=== PATIENT | male | born 2005 | race Caucasian/White ===

== ENCOUNTER 2025-03-29 22:59 | Emergency (ER) | payer BC, SELFPAY ==
[2025-03-29 23:09] VITALS: BP 146/61; PULSE 60; RESP 18; TEMP 36.8; O2SAT 99
--- NOTE | 2025-03-29 23:28 | ED.GENADUL_ITS ---
Discharge Plan Disposition Patient Disposition: Home Condition: Good Discharge Details Clinical Impression: Concussion Primary Care Provider: Unknown,Unknown ED Provider: Lilliam Kaiser Home Meds and New Rx's Prescriptions: No Action No Known Home Meds Discharge Instructions Instructions: Concussion, Adult ED Additional Instructions: Call your primary care doctor in the morning to schedule an appointment to be seen within 72 hours to followup on your visit today. Return to the emergency department for new or worsening symptoms including vomiting, numbness, weakness, vertigo, or if you have any other concerns. HPI General Mode of arrival: ambulatory . Date/Time Provider Initiated Documentation: 03/29/25 23:00 . Limitations to Documentation: no limitations . Information obtained by: patient . HPI Narrative: 19yo previously healthy male presenting with headache and memory problems. Symptoms started two days ago after being struck in the head with a soccer ball. No LOC, not on AC. The afternoon after the event he was unable to remember clearly what he had been doing for the past several hours. Still feels like his 'thinking is fussy'. 5/10 dull diffuse headache; had not taken anything for pain. No neck pain, numbness, weakness, vertigo, double vision, nausea, or vomiting. Feels like his eyes are watering more than usual; no other vision changes. Otherwise in his usual state of health. Related Data Home Medications ?Medication ?Instructions ?Recorded ?Confirmed Unknown [No Known Home Meds] 03/29/25 0 03/29/25 Allergies Allergy/AdvReac Type Severity Reaction Status Date / Time No Known Allergies Allergy Unverified 03/29/25 23:15 General Stated Complaint: HeadInjury JAMES: 3 Review of Systems Narrative: see HPI Exam Narrative Exam Narrative: General: Alert, well appearing, well nourished, in no acute distress. Head: Normocephalic, atraumatic Neck: Trachea midline, ?Neck supple. No midline cervical tenderness. Full pain free ROM ENT: ?MMM.? No oropharygeal lesions or exudate. Cardiac: ?RRR, no murmurs appreciated Resp: No respiratory distress. CTAB. Abd: ?Soft, non-distended, nontender : ?No suprapubic tenderness. No CVA tenderness. Extremities: ?No deformities.? No peripheral edema. Neuro: ? GCS 15.? PERRL.? EOMI.? Fluent speech, no dysarthria. Motor- 5/5 strength symmetric bilateral upper and lower extremities including shoulder abductors/adductors, elbow flexors/extensors, wrist flexors/extensors, finger abductors/adductors, hipflexors/extensors, knee flexors/extensors, ankle dorsiflexors and planter flexors. Sensation- ?Intact to light touch and symmetric multiple dermatomes including upper and lower extremities Coordination- No dysmetria on finger to nose Reflexes- 2/4 achilles & patellar, no clonus Gait/station: ?Normal stance.? No truncal ataxia. Steady gait with equal normal steps CRANIAL NERVES: II: Pupils equal and reactive, III, IV, : EOM intact, no gaze preference or deviation, no nystagmus. V: normal sensation in V1, V2, and V3 segments bilaterally VII: no asymmetry, no nasolabial fold flattening VIII: normal hearing to speech IX, X: normal palatal elevation, no uvular deviation XI: 5/5 head turn and 5/5 shoulder shrug bilaterally XII: midline tongue protrusion Eye: ?PERRL ?EOM full and pain free.? Visual brooke intact to confrontation bilaterally R: ? ? VA- 20/40 ? ?Lids/lashes- nml ?Conjuctiva-white ?Cornea: Clear ? L: ? ? VA- 20/40 ? ?Lids/lashes- nml ?Conjuctiva-white ?Cornea: Clear ? Course Vital Signs Vital signs: Vital Signs Temperature 36.8 C 03/29/25 23:09 Pulse 60 03/29/25 23:09 Respiratory Rate 18 03/29/25 23:09 Blood Pressure 146/61 H 03/29/25 23:09 Pulse Oximetry 99 03/29/25 23:09 Temperature 36.8 C 03/29/25 23:09 Temperature Source Oral 03/29/25 23:09 Pulse 60 03/29/25 23:09 Respiratory Rate 18 03/29/25 23:09 Respiratory Effort Normal 03/29/25 23:12 Blood Pressure 146/61 H 03/29/25 23:09 Pulse Oximetry 99 03/29/25 23:09 Oxygen Delivery Method Room Air 03/29/25 23:09 Oxygen Flow Rate 0 03/29/25 23:09 Pain Level 2 08/21/25 23:09 Medical Decision Making 19yo previously healthy male presenting with headache and memory problems. Symptoms started two days ago after being struck in the head with a soccer ball. No LOC, not on AC. 5/10 dull diffuse headache; had not taken anything for pain. Vital signs reassuring on arrival, normal neurologic exam and eye exam. Not suggestive of retinal detachment or traumatic eye injury. Suspect concussion, low suspicion for ICH. Discussed with patient risks/benefits of CT including risk of radiation; he would prefer to proceed with CT imaging. CT head independently reviewed; no ICH or mass on my view, radiology read with no acute findings. Advised symptomatic treatment at home, PCP followup. Discharged home. Discharge instructions and return precuations were reviewed with patient who verabalized understanding. All questions were answered and he is in full agremeent with the plan. IMPRESSION: No evidence for acute intracranial abnormality PFSH All Active Problems (Updated 03/30/25 @ 01:11 by Lilliam Kaiser MD) Concussion (Acute) Social History Smoking/Tobacco Use Status: Never Smoking risk assessment performed?: Yes Alcohol Intake: never Substance use type: does not use
--- NOTE | 2025-03-29 23:45 | DI.CT_ITS ---
Exam(s) CT HEAD WO EXAM: CT HEAD WO CLINICAL HISTORY: head injury, memory loss. TECHNIQUE: Imaging Protocol: Axial computed tomography images with coronal and sagittal reformatted images were created and reviewed COMPARISON: No exams were available for comparison FINDINGS: There are no skull fractures. There is no fluid in the visualized paranasal sinuses. There is no evidence of intracranial hemorrhage, mass effect, or shift of midline structures. There are no extra-axial fluid collections. The ventricles are not enlarged or shifted and there is no blood within the ventricular system nor within the basal cisterns. IMPRESSION: No acute intracranial findings on this noninfused CT scan of the brain. RADIATION DOSE DELIVERED: 840.08mGy.cm Total DLP DATA REPOSITORY: All CT scans at this facility are submitted to the National Radiology Data Registry (NRDR) Dose Index Registry (DIR) with the [employer] ([employer]). RADIATION OPTIMIZATION: All CT scans at this facility use at least one of these dose optimization techniques: automated exposure control; mA and/or kV adjustment per patient size (includes targeted exams where dose is matched to clinical indication); or iterative reconstruction.
--- NOTE | 2025-03-29 23:55 | DI.VRAD_ITS ---
PROCEDURE INFORMATION: Exam: CT Head Without Contrast Exam date and time: 03/29/2025 11:33 PM Age: 19 years old Clinical indication: Injury or trauma; Other: Hit in head with a ball; Blunt trauma (contusions or hematomas); Consciousness not specified; Injury date: 03/27/25; Head injury, memory loss TECHNIQUE: Imaging protocol: Computed tomography of the head without contrast. Radiation optimization: All CT scans at this facility use at least one of these dose optimization techniques: automated exposure control; mA and/or kV adjustment per patient size (includes targeted exams where dose is matched to clinical indication); or iterative reconstruction. COMPARISON: No relevant prior studies available. FINDINGS: Brain: Normal. No hemorrhage. Unremarkable white matter. No mass effect. Cerebral ventricles: No ventriculomegaly. Paranasal sinuses: Visualized sinuses are unremarkable. No fluid levels. Mastoid air cells: Visualized mastoid air cells are well aerated. Bones: Unremarkable. No acute fracture. Soft tissues: Unremarkable. IMPRESSION: No evidence for acute intracranial abnormality. Dictated and Authenticated by: Liset Rocha MD. Orderin Awilda Vyas MD
[2025-03-30] MEDS: Acetaminophen 500 MG TAB 1000 MG PO (00:03)
[2025-03-30 01:40] VITALS: BP 145/67; PULSE 60; RESP 18; O2SAT 99
== END 2025-03-30 01:40 | disposition home or self-care (01) ==
PROVIDERS: Emergency Provider Student in an Organized Health Care Education/Training Program
DX: S06.0XAA Concussion with loss of consciousness status unknown, initial encounter (principal); W22.8XXA Striking against or struck by other objects, initial encounter; Y93.66 Activity, soccer; R51.9 Headache, unspecified
CPT/HCPCS: 99283; 99284; 70450